=== PATIENT | male | born 1940 | race Caucasian/White ===

== ENCOUNTER → 2023-12-18 17:07 | Outpatient (REF) | payer OTHER, SELFPAY | LOC: REG 17:07 | PROVIDERS: ATTENDING PHYSICIAN Specialist; FAMILY PHYSICIAN Nurse Practitioner Family | DX: M19.012 Primary osteoarthritis, left shoulder (principal); Z01.818 Encounter for other preprocedural examination | CPT/HCPCS: 36415; 80053; 83036; 85027; 85652; 86140; 86850; 86900; 86901; 87070 ==

== ENCOUNTER → 2023-12-24 15:11 | Outpatient (REF) | payer OTHER, SELFPAY | LOC: HWRAD 15:11 | PROVIDERS: ATTENDING PHYSICIAN Specialist; FAMILY PHYSICIAN Nurse Practitioner Family | DX: Z96.612 Presence of left artificial shoulder joint (principal) | CPT/HCPCS: 73200 ==

== ENCOUNTER 2024-01-02 05:45 | Day surgery (SDC) | payer OTHER, SELFPAY ==
--- NOTE | 2023-12-15 09:22 | CM ---
Patient is scheduled for Revision L Reverse TSA on 01/02/24. Spoke with patient prior to surgery. 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 Reintroduced role of Orthopedic Navigator. Patient reports that he lives
with his in a multi story home. Currently he functions independently. There is a cane, raised toilet seat with rails, commode, shower seat and rolling walker in the home from his 's prior orthopedic surgeries. He has never had VN services.
PCP is Dwight Hardy.
Discussed orthopedic program and post surgical plans. Reviewed anticipated length of stay and assistance that he may need at discharge. Explained that goal is for him to return home at discharge. Also reviewed MD follow up and transition to
outpatient therapy. Patient is in agreement with tentative plan and states that his will be home with him and can assist if needed.
Patient will complete online education.
Plan: Orthopedic Navigator will be involved in the care of patient after surgery and will reassess discharge needs at that time.
[2023-12-18 12:40] VITALS: BMI 29.1
[2023-12-18 13:50] LABS: Hematocrit 34.1 % (39.0-52.0); Hemoglobin 11.5 g/dL (13.0-18.0); Mean Corp Hgb Conc. 33.7 g/dL (33.0-37.0); Mean Corpuscular Hgb 32.1 pg (27.0-31.0); Mean Corpuscular Volume 95.3 fL (80.0-94.0); Mean Platelet Volume 9.9 fL (7.4-10.4); Platelet Count 331 10^3/uL (130-400); Red Blood Cell Count 3.58 10^6/uL (4.70-6.10); Red Cell Dist. Width 13.6 % (11.5-14.5); White Blood Cell Count 8.8 10^3/uL (4.8-10.8)
[2023-12-18 14:10] LABS: Glycohemoglobin (HgbA1c) 5.1 % (4.0-5.6)
[2023-12-18 14:27] LABS: C-Reactive Protein < 5.00 mg/L (0.0-10.00)
[2023-12-18 14:31] VITALS: BMI 29.1
[2023-12-18 14:35] LABS: ALT (SGPT) 36 U/L (0-50); AST (SGOT) 43 U/L (17-59); Albumin 4.2 g/dl (3.5-5.0); Alkaline Phosphatase 101 U/L (38-126); Blood Urea Nitrogen 30 mg/dl (9-20); Calcium 9.4 mg/dl (8.4-10.2); Carbon Dioxide 25 mmol/L (22-30); Chloride 104 mmol/L (98-107); Estimated Creatinine Clearance 79 ml/min; Glucose 91 mg/dl (70-99); Potassium 4.3 mmol/L (3.5-5.1); Sodium 138 mmol/L (135-145); Total Bilirubin 0.6 mg/dl (0.2-1.3); Total Protein 6.7 g/dl (6.3-8.2); eGFR > 60.00
[2023-12-18 14:47] LABS: Erythrocyte Sed Rate 9 mm/hour (0-20)
[2024-01-02] VITALS (9 sets, daily range): BP systolic 124–178; BP diastolic 64–87
[2024-01-02] MEDS: CELEBREX 200 MG PO (10:03)
[2024-01-02] MEDS: TYLENOL 1000 MG PO (10:03)
[2024-01-02] MEDS: NORMOSOL-R 1000 IV (10:04)
--- NOTE | 2024-01-02 10:46 | CM ---
Patient is having planned 2nd stage revision L Reverse TSA today. The discharge plan is for patient to return home at discharge. He will have support from his when he goes home. Discussed MD follow up and he is aware of need to contact
surgeon's office to schedule appointment.
Patient will use [facility] pharmacy for discharge prescriptions.
No needs currently identified.
[2024-01-02] MEDS: ANCEF 5 IV (16:31)
== END 2024-01-02 17:07 | disposition home or self-care (01) | DRG 483 ==
LOC: SDS 05:45
PROVIDERS: ATTENDING PHYSICIAN Specialist; FAMILY PHYSICIAN Nurse Practitioner Family
PROC: 0RPK08Z Removal of Spacer from Left Shoulder Joint, Open Approach (ICD-10-PCS; 2024-01-02)
PROC: 0RRK00Z Replacement of Left Shoulder Joint with Reverse Ball and Socket Synthetic Substitute, Open Approach (ICD-10-PCS; 2024-01-02)
DX: M19.012 Primary osteoarthritis, left shoulder (principal); I10 Essential (primary) hypertension; E78.5 Hyperlipidemia, unspecified; T84.59XD Infection and inflammatory reaction due to other internal joint prosthesis, subsequent encounter; Y83.8 Other surgical procedures as the cause of abnormal reaction of the patient, or of later complication, without mention of misadventure at the time of the procedure; Y79.2 Prosthetic and other implants, materials and accessory orthopedic devices associated with adverse incidents; I49.3 Ventricular premature depolarization; I25.10 Atherosclerotic heart disease of native coronary artery without angina pectoris; I70.0 Atherosclerosis of aorta; I77.810 Thoracic aortic ectasia; I73.9 Peripheral vascular disease, unspecified; I08.1 Rheumatic disorders of both mitral and tricuspid valves; R91.8 Other nonspecific abnormal finding of lung field; K63.5 Polyp of colon; H91.93 Unspecified hearing loss, bilateral; K57.90 Diverticulosis of intestine, part unspecified, without perforation or abscess without bleeding; M48.061 Spinal stenosis, lumbar region without neurogenic claudication; M54.16 Radiculopathy, lumbar region; D50.9 Iron deficiency anemia, unspecified; M05.9 Rheumatoid arthritis with rheumatoid factor, unspecified; Z96.612 Presence of left artificial shoulder joint; Z86.19 Personal history of other infectious and parasitic diseases; Z79.2 Long term (current) use of antibiotics; Z95.5 Presence of coronary angioplasty implant and graft; Z85.820 Personal history of malignant melanoma of skin; Z85.828 Personal history of other malignant neoplasm of skin; Z87.891 Personal history of nicotine dependence; Z91.048 Other nonmedicinal substance allergy status
CPT/HCPCS: 23474; 36415; 73020; 80053; 83036; 85027; 85652; 86140; 86850; 86900; 86901; 87070; 87075; 87205; C1713; C1776

== ENCOUNTER → 2024-02-27 12:22 | Outpatient (REF) | payer OTHER, SELFPAY | LOC: PAVMRI 12:22 | PROVIDERS: ATTENDING PHYSICIAN Pain Medicine Interventional Pain Medicine; FAMILY PHYSICIAN Nurse Practitioner Family | DX: M54.16 Radiculopathy, lumbar region (principal) | CPT/HCPCS: 72148 ==

== ENCOUNTER → 2024-06-03 10:46 | Outpatient (REF) | payer OTHER, SELFPAY | LOC: HWRAD 10:46 | PROVIDERS: ATTENDING PHYSICIAN Family Medicine | DX: R53.83 Other fatigue (principal); R50.9 Fever, unspecified | CPT/HCPCS: 71046 ==

== ENCOUNTER → 2024-06-30 10:07 | Outpatient (REF) | payer OTHER, SELFPAY | LOC: RAD 10:07 | PROVIDERS: ATTENDING PHYSICIAN Surgery Vascular Surgery; FAMILY PHYSICIAN Nurse Practitioner Family | DX: I73.9 Peripheral vascular disease, unspecified (principal) | CPT/HCPCS: 93922; 93925 ==

== ENCOUNTER → 2024-08-17 13:41 | Outpatient (REF) | payer OTHER, SELFPAY | LOC: HWRAD 13:41 | PROVIDERS: ATTENDING PHYSICIAN Physician Assistant Surgical; FAMILY PHYSICIAN Nurse Practitioner Family | DX: M25.511 Pain in right shoulder (principal) | CPT/HCPCS: 73200 ==

== ENCOUNTER → 2024-09-03 09:42 | Outpatient (REF) | payer OTHER, SELFPAY | LOC: EMG 09:42 | PROVIDERS: ATTENDING PHYSICIAN Physician Assistant Surgical; FAMILY PHYSICIAN Nurse Practitioner Family | DX: M54.12 Radiculopathy, cervical region (principal) | CPT/HCPCS: 95886; 95911 ==

== ENCOUNTER → 2024-09-27 13:53 | Outpatient (REF) | payer OTHER, SELFPAY | LOC: HWRAD 13:53 | PROVIDERS: ATTENDING PHYSICIAN Internal Medicine Critical Care Medicine; FAMILY PHYSICIAN Nurse Practitioner Family | DX: R91.1 Solitary pulmonary nodule (principal) | CPT/HCPCS: 71250 ==

== ENCOUNTER → 2024-09-30 08:21 | Outpatient (REF) | payer OTHER, SELFPAY | LOC: DHCBC/DCA 08:21 | PROVIDERS: ATTENDING PHYSICIAN Nuclear Medicine Nuclear Cardiology; FAMILY PHYSICIAN Nurse Practitioner Family | DX: R00.1 Bradycardia, unspecified (principal); I49.3 Ventricular premature depolarization; I25.10 Atherosclerotic heart disease of native coronary artery without angina pectoris; R07.89 Other chest pain | CPT/HCPCS: 78452; 93017; A9500 ==

== ENCOUNTER 2024-10-12 06:03 | Day surgery (SDC) | payer OTHER, SELFPAY ==
[2024-09-23 12:38] LABS: Hematocrit 37.4 % (39.0-52.0); Hemoglobin 12.5 g/dL (13.0-18.0); Mean Corp Hgb Conc. 33.4 g/dL (33.0-37.0); Mean Corpuscular Hgb 33.1 pg (27.0-31.0); Mean Corpuscular Volume 98.9 fL (80.0-94.0); Mean Platelet Volume 10.2 fL (7.4-10.4); Platelet Count 268 10^3/uL (130-400); Red Blood Cell Count 3.78 10^6/uL (4.70-6.10); Red Cell Dist. Width 13.4 % (11.5-14.5); White Blood Cell Count 6.1 10^3/uL (4.8-10.8)
[2024-09-23 13:33] LABS: ALT (SGPT) 37 U/L (0-50); AST (SGOT) 38 U/L (17-59); Albumin 4.2 g/dl (3.5-5.0); Alkaline Phosphatase 106 U/L (38-126); Blood Urea Nitrogen 27 mg/dl (9-20); Calcium 9.2 mg/dl (8.4-10.2); Carbon Dioxide 25 mmol/L (22-30); Chloride 105 mmol/L (98-107); Glucose 95 mg/dl (70-99); Potassium 4.5 mmol/L (3.5-5.1); Sodium 141 mmol/L (135-145); Total Bilirubin 0.7 mg/dl (0.2-1.3); eGFR > 60.00
[2024-09-23 14:23] LABS: Glycohemoglobin (HgbA1c) 5.2 % (4.0-5.6)
[2024-10-12] VITALS (9 sets, daily range): BP systolic 112–160; BP diastolic 53–71; BMI 27.5
[2024-10-12] MEDS: NORMOSOL-R/PLASMALYTE-A 1000 IV (06:29)
[2024-10-12] MEDS: CELEBREX 200 MG PO (06:29)
[2024-10-12] MEDS: TYLENOL 1000 MG PO (06:29)
--- NOTE | 2024-10-12 07:37 | W.DS.TRANS ---
DC Summary - Manager Of Tax
-
Discharge Instructions:
Sleep Apnea Risk Intermediate
Discharge Diagnosis/Procedures R Reverse TSA Dr. Will 10/12/24
Diet As tolerated
Activity No strenuous activity
Driving Restrictions No driving
Bathing Restrictions OK to Shower
Instructions:
Stand-Alone Forms: [employer] Total Shoulder D/C Inst.
Changes to Home Medications: Yes
Discharge Medications:
DC Medications w/original date entered in [facility]
ascorbic acid (vitamin C) 500 mg tablet (Vitamin C) 500 mg PO DAILY Supplement 01/05/21
multivitamin with folic acid 400 mcg tablet (Tab-A-Benita) 1 tab PO DAILY Supplement 01/05/21
rosuvastatin 20 mg tablet 20 mg PO DAILY High Cholesterol 05/29/22
magnesium glycinate 100 mg (as glycinate) tablet 200 mg PO BID Supplement 10/27/23
mupirocin 2 % topical ointment 1 applic intranasal BID #1 tube 12/18/23
aspirin 325 mg tablet 325 mg PO DAILY #30 tabs 01/02/24
cefuroxime axetil 500 mg tablet 500 mg PO BID #28 tabs 01/02/24
hydralazine 50 mg tablet 100 mg (2 x 50 mg) PO BID Blood Pressure #0 tabs 01/02/24
lisinopril 40 mg tablet 40 mg PO DAILY #0 tabs 01/02/24
metoprolol succinate 25 mg tablet,extended release 24 hr (Toprol XL) 12.5 mg (1/2 x 25 mg) PO DAILY #1 tab 01/02/24
aspirin 81 mg chewable tablet 81 mg PO DAILY 10/07/24
Saccharomyces boulardii 250 mg capsule (Florastor) 250 mg PO BID #1 cap 10/12/24
acetaminophen 500 mg tablet 1,000 mg (2 x 500 mg) PO QID #0 tabs 10/12/24
celecoxib 100 mg capsule 100 mg PO BID Anti-inflammatory #14 caps 10/12/24
docusate sodium 100 mg capsule (Colace) 100 mg PO BID stool softner #1 cap 10/12/24
magnesium hydroxide 400 mg/5 mL oral suspension (Milk of Magnesia) 30 ml PO HS PRN Constipation #1 mL 10/12/24
sennosides 8.6 mg tablet (Senokot) 17.2 mg (2 x 8.6 mg) PO BID laxative #2 tabs 10/12/24
tramadol 50 mg tablet 50 mg PO Q6H PRN 1 tab moderate pain, 2 if severe #30 tabs 10/12/24
Home Medication Changes
magnesium glycinate 100 mg (as glycinate) tablet 200 mg PO BID Supplement 10/27/23
mupirocin 2 % topical ointment 1 applic intranasal BID #1 tube 12/18/23
aspirin 325 mg tablet 325 mg PO DAILY #30 tabs 01/02/24
cefuroxime axetil 500 mg tablet 500 mg PO BID #28 tabs 01/02/24
hydralazine 50 mg tablet 100 mg (2 x 50 mg) PO BID Blood Pressure #0 tabs 01/02/24
lisinopril 40 mg tablet 40 mg PO DAILY #0 tabs 01/02/24
metoprolol succinate 25 mg tablet,extended release 24 hr (Toprol XL) 12.5 mg (1/2 x 25 mg) PO DAILY #1 tab 01/02/24
aspirin 81 mg chewable tablet 81 mg PO DAILY 10/07/24
Saccharomyces boulardii 250 mg capsule (Florastor) 250 mg PO BID #1 cap 10/12/24
acetaminophen 500 mg tablet 1,000 mg (2 x 500 mg) PO QID #0 tabs 10/12/24
celecoxib 100 mg capsule 100 mg PO BID Anti-inflammatory #14 caps 10/12/24
docusate sodium 100 mg capsule (Colace) 100 mg PO BID stool softner #1 cap 10/12/24
magnesium hydroxide 400 mg/5 mL oral suspension (Milk of Magnesia) 30 ml PO HS PRN Constipation #1 mL 10/12/24
sennosides 8.6 mg tablet (Senokot) 17.2 mg (2 x 8.6 mg) PO BID laxative #2 tabs 10/12/24
tramadol 50 mg tablet 50 mg PO Q6H PRN 1 tab moderate pain, 2 if severe #30 tabs 10/12/24
Pending Results: No
[2024-10-12] MEDS: ANCEF 5 IV (11:58)
== END 2024-10-12 12:08 | disposition home or self-care (01) ==
LOC: SDS 06:03
PROVIDERS: ATTENDING PHYSICIAN Specialist; OTHER PHYSICIAN Internal Medicine Infectious Disease; OTHER PHYSICIAN Nuclear Medicine Nuclear Cardiology; REFERRING PHYSICIAN Nurse Practitioner Family
DX: M19.011 Primary osteoarthritis, right shoulder (principal)
CPT/HCPCS: 23472; 36415; 73020; 80053; 83036; 85027; 86850; 86900; 86901; 87070; C1713; C1776

== ENCOUNTER → 2025-07-07 10:03 | Outpatient (REF) | payer OTHER, SELFPAY | LOC: RAD 10:03 | PROVIDERS: ATTENDING PHYSICIAN Surgery Vascular Surgery; FAMILY PHYSICIAN Nurse Practitioner Family | DX: I73.9 Peripheral vascular disease, unspecified (principal) | CPT/HCPCS: 93922; 93925 ==

== ENCOUNTER → 2025-08-15 08:40 | Outpatient (REF) | payer OTHER, SELFPAY | LOC: PAVMRI 08:40 | PROVIDERS: ATTENDING PHYSICIAN Nurse Practitioner Family | DX: M54.2 Cervicalgia (principal) | CPT/HCPCS: 72141 ==

== ENCOUNTER → 2025-08-31 07:58 | Outpatient (REF) | payer OTHER, SELFPAY | LOC: EMG 07:58 | PROVIDERS: ATTENDING PHYSICIAN Psychiatry & Neurology Neurology; FAMILY PHYSICIAN Nurse Practitioner Family | DX: M54.17 Radiculopathy, lumbosacral region (principal); R20.0 Anesthesia of skin | CPT/HCPCS: 95886; 95911 ==

== ENCOUNTER → 2025-10-07 07:06 | Outpatient (REF) | payer OTHER, SELFPAY | LOC: HWRAD 07:06 | PROVIDERS: ATTENDING PHYSICIAN Nurse Practitioner Family | DX: R94.5 Abnormal results of liver function studies (principal) | CPT/HCPCS: 76700 ==